=== PATIENT | male | born 1975 | race Two or more races ===

== ENCOUNTER 2017-03-22 04:49 | Emergency (ER) | payer MEDICAID, OTHER ==
[~2017-03-22] VITALS: Ht 152.4 cm; Wt 102.1 kg
--- NOTE | 2017-03-22 04:55 | NUR ---
PT PRESENTED TO THE ER WITH A C/O LT SIDED CP/PRESSURE THAT RADIATES TO THE LT ARM X 2 HRS DRAFTER. PT STATED THAT THE PAIN WAS INTERMITTENT OVER THE LAST 2 DAYS. PT HAS HX OF SLEEP APNEA AND HAS A C-PAP AT HOME THAT HE DOES NOT USE. PT IS ALSO A 3 PACK A DAY SMOKER. PT WAS TOLD TO STOP SMOKING AND EXPRESSED VERBAL UNDERSTANDING OF THE RISKS OF SMOKING - INCLUDING HEART ATTACK. PT AMBULATED TO BED #2 AND WAS PLACED ON THE MONITOR AND CONTINUOUS PULSE OX. DR. YAN IS AT THE BEDSIDE EVALUATING THE PT.
--- NOTE | 2017-03-22 05:12 | NUR ---
18G IV STARTED IN LFA AND BLOOD WAS DRAWN.
[2017-03-22] MEDS: NITROGLYCERIN 0.4 MG/TAB BOTTLE SL ONE (05:18)
[2017-03-22] MEDS: ASPIRIN 81 MG TAB.CHEW PO ONE (05:23)
[2017-03-22] MEDS: NITROGLYCERIN PACKET 1 GM PACKET TD ONE (05:23)
[2017-03-22] MEDS: NITROGLYCERIN PACKET 1 GM PACKET ONE (05:24)
[2017-03-22] MEDS: MORPHINE SULFATE INJ 2 MG/ML DISP.SYRIN ONE (05:24)
[2017-03-22] MEDS: NITROGLYCERIN 0.4 MG/TAB BOTTLE ONE (05:24)
[2017-03-22] MEDS: ASPIRIN 81 MG TAB.CHEW ONE (05:24)
[2017-03-22] MEDS: MORPHINE SULFATE INJ 2 MG/ML DISP.SYRIN IV ONE (05:24)
--- NOTE | 2017-03-22 05:25 | NUR ---
PT REFUSED MORPHINE.
[2017-03-22 05:31] LABS: BASOPHILS # (AUTO) 0.1 /CMM (0.0-0.2); BASOPHILS % (AUTO) 0.5 % (0.0-2.0); EOSINOPHILS # (AUTO) 0.2 /CMM (0.0-0.7); EOSINOPHILS % (AUTO) 2.1 % (0.0-6.0); HEMATOCRIT 45 % (39-51); HEMOGLOBIN 14.8 g/dL (13.5-17.5); LYMPHOCYTES # (AUTO) 1.8 /CMM (0.8-4.8); LYMPHOCYTES % (AUTO) 16.3 % (20.0-44.0); MEAN CORPUSCULAR HEMOGLOBIN 28 PG (26.0-33.0); MEAN CORPUSCULAR HGB CONC 33 g/dl (31.0-36.0); MEAN CORPUSCULAR VOLUME 86 fL (80-96); MONOCYTES # (AUTO) 0.8 /CMM (0.1-1.30); MONOCYTES % (AUTO) 6.9 % (2.0-12.0); NEUTROPHILS # (AUTO) 8.1 /CMM (1.8-8.9); NEUTROPHILS % (AUTO) 74.2 % (43.0-81.0); PLATELET COUNT (AUTO) 232 /CMM (150-450); RDW COEFFICIENT OF VARIATION 15.5 (11.5-15.0); RED BLOOD CELL COUNT(AUTO) 5.22 MIL/uL (4.5-6.0); WHITE BLOOD COUNT (AUTO) 10.9 K/uL (4.3-11.0)
[2017-03-22 05:48] LABS: CALCIUM, SERUM 8.3 mg/dL (8.5-10.1); CARBON DIOXIDE 29 mmol/L (21-32); CHLORIDE 105 mmol/L (98-107); CREATININE 0.7 mg/dL (0.6-1.3); GLUCOSE 214 mg/dL (74-106); POTASSIUM 3.7 mmol/L (3.5-5.1); SODIUM SERUM 138 mmol/L (136-145); UREA NITROGEN, BLOOD 9 mg/dL (7-18)
[2017-03-22 05:49] LABS: TROPONIN I < 0.017 ng/mL (0.00-0.056)
--- NOTE | 2017-03-22 05:51 | NUR ---
PT'S O2 SAT DROPPED TO 89% WHILE ON 2L O2 VIA NC. PT IS A MOUTH BREATHER WHEN SLEEPING. NC PLACED IN PT'S MOUTH. O2 SAT INCREASED TO 98%.
--- NOTE | 2017-03-22 05:51 | NUR ---
Faisal king in ED - 03/22/17 at 0554 by PEPE 18G IV STARTED IN LFA AND BLOOD WAS DRAWN.
[2017-03-22 05:53] LABS: D-DIMER 0.37 mg/L(FEU (0.17-0.50); INR 0.94 (0.87-1.13)
--- NOTE | 2017-03-22 05:55 | NUR ---
PT WAS SATURATING AT 78% ON 4L O2 NC. PT PLACED ON SIMPLE MASK AT 8L. PT IS SAT 97%.
[2017-03-22 06:03] LABS: ALKALINE PHOSPHATASE 82 U/L (46-116); BILIRUBIN,TOTAL 0.2 mg/dL (0.2-1.0)
[2017-03-22 06:04] LABS: ALANINE AMINOTRANSFERASE 28 U/L (12-78); ALBUMIN 3.1 g/dL (3.4-5.0); ASPARTATE AMINOTRANSFERASE 12 U/L (15-37); TOTAL PROTEIN, SERUM 6.8 g/dL (6.4-8.2)
--- NOTE | 2017-03-22 06:10 | NUR ---
RT IS AT THE BEDSIDE TO PUT PT ON C-PAP.
--- NOTE | 2017-03-22 06:11 | NUR ---
RT IS AT THE BEDSIDE TO PUT PT ON C-PAP. PT IS DIAPHORETIC. PT ON C-PAP OF 7 AND FIO2 OF 40%.
[2017-03-22 06:18] LABS: B-TYPE NATRIURETIC PEPTIDE 19 PG/ML (0-125)
[2017-03-22 06:25] VITALS: BP 140/70
--- NOTE | 2017-03-22 06:30 | NUR ---
PT'S C-PAP IS 13 AND FIO2 40%
--- NOTE | 2017-03-22 07:12 | NUR ---
REPORT GIVEN TO MADELYN KINGSTON FOR JAREN.
--- NOTE | 2017-03-22 07:15 | NUR ---
RECEIVED PATIENT IN STABLE CONDITION WHILE ON CPAP. WILL CONTINUE TO MONITOR.
[2017-03-22 09:16] VITALS: BP 129/69
--- NOTE | 2017-03-22 09:21 | NUR ---
Patient discharged to home in stable condition. Written and verbal after care instructions given. Patient verbalizes understanding of instruction.IV removed. Catheter intact and site benign. Pressure and 4x4 applied to site. No bleeding noted.
== END 2017-03-22 09:21 | disposition home or self-care (01) ==
LOC: ER 04:52
DX: R07.89 Other chest pain (principal); G47.30 Sleep apnea, unspecified; E66.9 Obesity, unspecified; F17.210 Nicotine dependence, cigarettes, uncomplicated; E11.65 Type 2 diabetes mellitus with hyperglycemia
CPT/HCPCS: 36415; 71010-TC; 80048-TC; 80076-TC; 83880; 84484-TC; 85025-TC; 85378-TC; 85730-TC; A4606; J2270; Z7610

== ENCOUNTER 2017-08-06 18:16 | Emergency (ER) | payer MEDICAID ==
[~2017-08-06] VITALS: Ht 152.4 cm; Wt 104.3 kg
--- NOTE | 2017-08-06 18:16 | NUR ---
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 C/O COUGH X2 DAYS FLOOR REPRESENTATIVE. PLACED ON MONITOR . AWAITING MD ORDER
--- NOTE | 2017-08-06 18:40 | NUR ---
EKG IN PROGRESS
--- NOTE | 2017-08-06 18:42 | NUR ---
VULCANIZER AT BEDSIDE
[2017-08-06] MEDS ORDERED: NITROGLYCERIN 0.4 MG/TAB BOTTLE ONE (18:49)
[2017-08-06] MEDS ORDERED: ASPIRIN 325 MG TABLET ONE (18:49)
[2017-08-06 18:54] LABS: BASOPHILS # (AUTO) 0.1 /CMM (0.0-0.2); BASOPHILS % (AUTO) 0.9 % (0.0-2.0); EOSINOPHILS # (AUTO) 0.3 /CMM (0.0-0.7); EOSINOPHILS % (AUTO) 2.6 % (0.0-6.0); HEMATOCRIT 47 % (39-51); HEMOGLOBIN 15.4 g/dL (13.5-17.5); LYMPHOCYTES # (AUTO) 1.9 /CMM (0.8-4.8); MEAN CORPUSCULAR HEMOGLOBIN 28 PG (26.0-33.0); MEAN CORPUSCULAR HGB CONC 33 g/dl (31.0-36.0); MEAN CORPUSCULAR VOLUME 86 fL (80-96); MONOCYTES # (AUTO) 0.7 /CMM (0.1-1.30); MONOCYTES % (AUTO) 6.7 % (2.0-12.0); NEUTROPHILS # (AUTO) 7.3 /CMM (1.8-8.9); NEUTROPHILS % (AUTO) 71.8 % (43.0-81.0); PLATELET COUNT (AUTO) 247 /CMM (150-450); RDW COEFFICIENT OF VARIATION 14.6 (11.5-15.0); RED BLOOD CELL COUNT(AUTO) 5.45 MIL/uL (4.5-6.0); WHITE BLOOD COUNT (AUTO) 10.3 K/uL (4.3-11.0)
[2017-08-06] MEDS ORDERED: ASPIRIN 325 MG TABLET PO ONE (19:00)
[2017-08-06] MEDS ORDERED: NITROGLYCERIN 0.4 MG/TAB BOTTLE SL ONE (19:00)
[2017-08-06 19:03] LABS: CARBON DIOXIDE 29 mmol/L (21-32); CHLORIDE 101 mmol/L (98-107); CREATININE 0.8 mg/dL (0.6-1.3); GLUCOSE 264 mg/dL (74-106); SODIUM SERUM 136 mmol/L (136-145); UREA NITROGEN, BLOOD 10 mg/dL (7-18)
[2017-08-06 19:09] LABS: INR 0.88 (0.87-1.13); PROTHROMBIN TIME 9.2 SECS (9.5-12.7)
--- NOTE | 2017-08-06 19:18 | NUR ---
REPORT REC'D FROM MADELYN SADLER FOR JAREN.
[2017-08-06 19:30] LABS: TROPONIN I < 0.017 ng/mL (0.00-0.056)
--- NOTE | 2017-08-06 19:48 | NUR ---
Patient does not wish to proceed with medical care recommended by Evangelista GUZMÁN NP. Patient given information related to possible complications, up to and including , which could occur as a result of leaving the hospital at this time. Patient verbalizes understanding of risks involved due to leaving against medical advice. Patient has signed AMA form.
--- NOTE | 2017-08-06 19:55 | NUR ---
Patient discharged to home in stable condition. Written and verbal after care instructions given. Patient verbalizes understanding of instruction. IV removed. Catheter intact and site benign. Pressure and 4x4 applied to site. No bleeding noted.
[2017-08-06 19:58] VITALS: BP 141/80
== END 2017-08-06 20:01 | disposition left against medical advice (07) ==
LOC: ER 18:17
DX: I24.9 Acute ischemic heart disease, unspecified (principal); R07.89 Other chest pain; I10 Essential (primary) hypertension; E11.9 Type 2 diabetes mellitus without complications; E66.9 Obesity, unspecified; F17.200 Nicotine dependence, unspecified, uncomplicated
CPT/HCPCS: 36415; 71010; 80048; 82962; 83880; 84484; 85025; 85730; 93005; 99285; 99406; A4606; Z7610

== ENCOUNTER 2018-02-11 10:46 | Inpatient (IN) | payer MEDICAID ==
[~2018-02-11] VITALS: Ht 157.5 cm; Wt 104.8 kg
--- NOTE | 2018-02-11 10:56 | NUR ---
PATIENT TO ED DT EPIGASTRIC PAIN, 06/14, NON RADIATING SINCE 0. PATIENT IS AWAKE AND ALERT, APPEARS IN NO APPARENT DISTRESS. RESPIRATION EVEN AND UNLABORED. SKIN IS WARM TO TOUCH AND NON DIAPHORETIC. PATIENT IS AFERILE. VSS
[2018-02-11] MEDS ORDERED: NITROGLYCERIN PACKET 1 GM PACKET ONE (11:05)
[2018-02-11] MEDS ORDERED: ONDANSETRON HCL/PF 4 MG/2 ML VIAL ONE (11:05)
[2018-02-11] MEDS ORDERED: ASPIRIN 325 MG TABLET ONE (11:05)
[2018-02-11 11:12] LABS: BASOPHILS # (AUTO) 0.1 /CMM (0.0-0.2); BASOPHILS % (AUTO) 0.5 % (0.0-2.0); EOSINOPHILS % (AUTO) 1.7 % (0.0-6.0); HEMATOCRIT 46 % (39-51); HEMOGLOBIN 15.5 g/dL (13.5-17.5); LYMPHOCYTES # (AUTO) 1.7 /CMM (0.8-4.8); LYMPHOCYTES % (AUTO) 14.2 % (20.0-44.0); MEAN CORPUSCULAR HGB CONC 33 g/dl (31.0-36.0); MEAN CORPUSCULAR VOLUME 84 fL (80-96); MONOCYTES # (AUTO) 0.7 /CMM (0.1-1.30); MONOCYTES % (AUTO) 5.9 % (2.0-12.0); NEUTROPHILS # (AUTO) 9.2 /CMM (1.8-8.9); NEUTROPHILS % (AUTO) 77.7 % (43.0-81.0); PLATELET COUNT (AUTO) 237 /CMM (150-450); RDW COEFFICIENT OF VARIATION 14.6 (11.5-15.0); WHITE BLOOD COUNT (AUTO) 11.9 K/uL (4.3-11.0)
[2018-02-11 11:22] LABS: CARBON DIOXIDE 27 mmol/L (21-32); CHLORIDE 100 mmol/L (98-107); CREATININE 0.8 mg/dL (0.6-1.3); GLUCOSE 278 mg/dL (74-106); SODIUM SERUM 134 mmol/L (136-145); UREA NITROGEN, BLOOD 11 mg/dL (7-18)
[2018-02-11 11:30] LABS: TROPONIN I < 0.017 ng/mL (0.00-0.056)
[2018-02-11] MEDS ORDERED: IV NS 0.9% 1,000 ML BAG IV ONE (11:30)
[2018-02-11] MEDS ORDERED: ONDANSETRON HCL/PF 4 MG/2 ML VIAL IVP ONE (11:30)
[2018-02-11] MEDS ORDERED: NITROGLYCERIN PACKET 1 GM PACKET TD ONE (11:30)
[2018-02-11] MEDS ORDERED: ASPIRIN 325 MG TABLET PO ONE (11:30)
[2018-02-11 11:35] LABS: ALANINE AMINOTRANSFERASE 26 U/L (12-78); ALBUMIN 3.5 g/dL (3.4-5.0); ALKALINE PHOSPHATASE 85 U/L (46-116); ASPARTATE AMINOTRANSFERASE 10 U/L (15-37); B-TYPE NATRIURETIC PEPTIDE 15 PG/ML (0-125); BILIRUBIN,DIRECT 0.1 mg/dL (0.0-0.2); BILIRUBIN,TOTAL 0.3 mg/dL (0.2-1.0); TOTAL PROTEIN, SERUM 7.6 g/dL (6.4-8.2)
[2018-02-11] MEDS ORDERED: SITA50TA PO (11:40)
--- NOTE | 2018-02-11 12:21 | NUR ---
CALLED [facility] FOR ADMISSION
--- NOTE | 2018-02-11 12:28 | NUR ---
320-1 Addendum: 02/11/18 at 1228 by RYANARKS 320-1 TELE
--- NOTE | 2018-02-11 12:52 | NUR ---
REPORT GIVEN TO FLOOR RN. VSS
--- NOTE | 2018-02-11 12:52 | NUR ---
PATIENT TRANSPORTED TO [address] [place] [address]
[2018-02-11] MEDS ORDERED: MAG HYDROX/AL HYDROX/SIMETH 30 ML UDC PO PRN (13:00)
[2018-02-11] MEDS ORDERED: Z GUARD REMEDY 2 OZ OINT TP PRN (13:00)
[2018-02-11] MEDS ORDERED: MAGNESIUM HYDROXIDE 30 ML UDC PO PRN (13:00)
[2018-02-11] MEDS ORDERED: DEXTROSE 50%-WATER 50 ML DISP.SYRIN IV PRN (13:00)
[2018-02-11] MEDS ORDERED: *INSULIN REGULAR(HUMULIN R)HUM 100 UNIT/ML VIAL SQ PRN (13:00)
[2018-02-11] MEDS ORDERED: ACETAMINOPHEN 325 MG TABLET PO PRN (13:00)
[2018-02-11] MEDS ORDERED: HYDROCODONE/APAP 5/325MG 1 EACH TABLET PO PRN (13:00)
[2018-02-11] MEDS ORDERED: ONDANSETRON HCL/PF 4 MG/2 ML VIAL IVP PRN (13:00)
--- NOTE | 2018-02-11 13:00 | NUR ---
STRIPE MARKERSHELTER SUPERVISOR NOTES RECEIVED PT FROM ER NURSE IN STABLE CONDITION. PT IS A/O X3. NO SOB OR ACUTE SIGNS OF DISTRESS NOTED. BREATHING IS EVEN AND UNLABORED. PT PLACED ON 2L O2 VIA NC AND SATING AT 95%. VITALS STABLE AT THIS TIME. PT IS SR-ST ON THE TELE MONITOR WITH A CURRENT HR OF 101. HE DENIES ANY CHEST PAIN AT THIS TIME. IV TP RIGHT AC NOTED TO BE PATENT AND INTACT. NO REDNESS OR SIGNS OF INFILTRATION NOTED. PT WAS ORIENTED TO HIS ROOM AND USE OF CALL LIGHT. MADE AWARE OF PT'S ADMISSION TO FLOOR. WILL BEGIN ADMISSION PROCESS AND AWAIT FURTHER ORDERS
[2018-02-11 13:11] VITALS: BP 128/96
[2018-02-11] MEDS: ENOXAPARIN SODIUM 40 MG/0.4 ML DISP.SYRIN SQ SCH (14:36)
[2018-02-11] MEDS: INSULIN REGULAR, HUMAN 100 UNIT/ML 3 ML VIAL SQ PRN ×2 (14:37→17:07)
[2018-02-11 16:00] VITALS: BP 133/76
[2018-02-11] MEDS: BLOOD SUGAR DIAGNOSTIC 1 EACH STRIP VI SCH ×2 (16:59→22:33)
[2018-02-11] MEDS: NICOTINE PATCH (21MG) 21 MG PATCH.TD24 TD SCH (16:59)
--- NOTE | 2018-02-11 17:58 | NUR ---
MS RN NOTES: SMOKING CESSATION EDUCATION/INTERVENTIONS PT EXPRESSES THAT HE SMOKES 1.5-3 PACKS OF CIGARETTES PER DAY AND THAT HE WOULD LIKE TO STOP. HYDRAULICS ENGINEER CONSULT ORDERED TO PROVIDE PT WITH INFORMATION IN REGARDS TO OUTPATIENT PROGRAMS. HE WAS ALSO PROVIDED WITH EDUCATIONAL MATERIALS AND TEACHING REGARDING CESSATION. NICOTINE PATCH ORDERED PER MD AND ADMINISTERED.
--- NOTE | 2018-02-11 18:35 | NUR ---
MS RN CLOSING NOTES PT REMAINS STABLE SINCE ADMISSION. ALL NEEDS WERE MET DURING SHIFTY AND ORDERS CARRIED OUT ACCORDINGLY. ALL DUE MEDS GIVEN. HE CONTINUES TO DENY ANY CHEST PAIN. IV REMAINS PATENT AND INTACT. SAFETY MEASURES REMAIN IN PLACE. WILL ENDORSE TO NIGHTSHIFT NURSE FOR JAREN
[2018-02-11 20:00] VITALS: BP 134/74
[2018-02-11] MEDS ORDERED: ZOLPIDEM TARTRATE 5 MG TABLET PO PRN (22:00)
[2018-02-12] VITALS: BP 125/77
[2018-02-12 04:06] VITALS: BP 106/64
[2018-02-12] MEDS: INSULIN REGULAR, HUMAN 100 UNIT/ML 3 ML VIAL SQ PRN ×3 (06:30→18:18)
[2018-02-12] MEDS: BLOOD SUGAR DIAGNOSTIC 1 EACH STRIP VI SCH ×3 (06:41→18:16)
--- NOTE | 2018-02-12 06:44 | NUR ---
MILITARY TECHNOLOGY SPECIALIST NOTES AWAKE & RESPONSIVE. NOT IN ANY DISTRESS. NO SOB NOTED. DENIES ANY PAIN OR DISCOMFORT AT THIS TIME. ON TELE SR @ 99 WITH IV-HL PATENT & INTACT. CALL LIGHT WITHIN REACH. BED IN LOWEST POSITION. SR UP X 2 FOR SAFETY. WILL ENDORSE TO NEXT SHIFT.
[2018-02-12 06:46] LABS: BASOPHILS % (AUTO) 0.2 % (0.0-2.0); EOSINOPHILS % (AUTO) 1.3 % (0.0-6.0); HEMATOCRIT 46 % (39-51); HEMOGLOBIN 14.9 g/dL (13.5-17.5); LYMPHOCYTES # (AUTO) 1.4 /CMM (0.8-4.8); LYMPHOCYTES % (AUTO) 11.1 % (20.0-44.0); MEAN CORPUSCULAR HGB CONC 33 g/dl (31.0-36.0); MEAN CORPUSCULAR VOLUME 88 fL (80-96); MONOCYTES # (AUTO) 0.7 /CMM (0.1-1.30); MONOCYTES % (AUTO) 5.9 % (2.0-12.0); NEUTROPHILS # (AUTO) 10.3 /CMM (1.8-8.9); NEUTROPHILS % (AUTO) 81.5 % (43.0-81.0); PLATELET COUNT (AUTO) 225 /CMM (150-450); RDW COEFFICIENT OF VARIATION 16.1 (11.5-15.0); RED BLOOD CELL COUNT(AUTO) 5.17 MIL/uL (4.5-6.0); WHITE BLOOD COUNT (AUTO) 12.6 K/uL (4.3-11.0)
[2018-02-12 07:05] LABS: CALCIUM, SERUM 8.7 mg/dL (8.5-10.1); CREATININE 0.7 mg/dL (0.6-1.3); MAGNESIUM 2.1 mg/dL (1.8-2.4); PHOSPHORUS 3.4 mg/dL (2.5-4.9); POTASSIUM 3.9 mmol/L (3.5-5.1)
--- NOTE | 2018-02-12 07:25 | NUR ---
telephone solicitor initial notes Received patient sitting on the chair asleep, per manufacturing shift supervisor RN that's the way patient sleep, and appeared comfortable. Alert and oriented x 3, verbally responsive and able to make needs known. IV intact and patent, HL only. On tele monitor ST heart rate of 111. No facial grimace noted. On 02 2lpm via NC and tolerated well. Call light with in patient reach, will continue to monitor accordingly.
[2018-02-12] MEDS ORDERED: PANTOPRAZOLE 40 MG TABLET.DR PO SCH (07:30)
[2018-02-12 08:00] VITALS: BP_SYST 117; BP_SYST 145; BP_DIAS 71; BP_DIAS 75
[2018-02-12] MEDS: NICOTINE PATCH (21MG) 21 MG PATCH.TD24 TD SCH (08:28)
[2018-02-12] MEDS: ENOXAPARIN SODIUM 40 MG/0.4 ML DISP.SYRIN SQ SCH (08:29)
[2018-02-12] MEDS: METOPROLOL TARTRATE 50 MG TABLET PO SCH ×2 (12:18→18:16)
[2018-02-12] MEDS ORDERED: IOHEXOL-350 100 ML VIAL IV ONE (15:35)
[2018-02-12] MEDS ORDERED: METOPROLOL TARTRATE INJ 5 MG/5 ML AMPUL ONE ×2 (15:42→15:47)
[2018-02-12 16:00] VITALS: BP 130/85
[2018-02-12 18:16] VITALS: BP 135/79
--- NOTE | 2018-02-12 18:53 | NUR ---
ms legal internship notes discharge instructions given to patient and able to understand instructions. Okay to discharge home per MD due to CTA result normal. Signed discharge paper and belonging list and no item missing. IV discontinued and pressured applied to prevent bleeding. FLu is out of season and pneumonia not given due to patient is <65 years old. Patient left in stable condition accompanied by mother and brother. Skin is intact, no pictures needed. Vital signs checked and recorded. MD and charge nurse made aware. Health teaching and education rendered. Informed patient to follow up with primary health care physician in 1-2 weeks.
== END 2018-02-12 18:50 | disposition home or self-care (01) | DRG 203 ==
LOC: ER 10:47 → TELE 12:45 → MED 02-12 08:39
PROVIDERS: ADMIT Internal Medicine; ATTEND Internal Medicine
DX: M94.0 Chondrocostal junction syndrome [Tietze] (principal); E44.0 Moderate protein-calorie malnutrition; Z68.41 Body mass index [BMI] 40.0-44.9, adult; E11.9 Type 2 diabetes mellitus without complications; E66.01 Morbid (severe) obesity due to excess calories; E78.5 Hyperlipidemia, unspecified; F17.200 Nicotine dependence, unspecified, uncomplicated; G47.33 Obstructive sleep apnea (adult) (pediatric); Z71.6 Tobacco abuse counseling; I10 Essential (primary) hypertension; Z91.19 Patient's noncompliance with other medical treatment and regimen
CPT/HCPCS: 36415; 71045-TC; 75574; 80048-TC; 80061-TC; 80076-TC; 82962-TC; 83735-TC; 83880; 84100-TC; 84484-TC; 85025-TC; 87081-TC; 93307-TC; A4606; J1650; J1815; J2405; J3490; J7030; Q9967; Z7610